=== PATIENT | male | born 1940 | race Caucasian/White ===

== ENCOUNTER → 2016-06-03 | Outpatient (REF) | payer MEDICARE ==
[~2016-06-03] MED LIST: ASPI1TAB PO; ASPI81TAEC PO; ATEN50TA2 PO; DOCQ100C PO; DOCU100C PO; DRIS50002 PO; FLON1SPR; FLUT1SPR2; HYDR50TAB PO; IMDUR PO; ISOS60TA2 PO; NAPR500T2 PO; OMEP20CA3 PO; SPIR50TA2 PO; TUMS500C PO
[2016-06-03 15:53] LABS: CALCIUM LEVEL 8.8 MG/DL (8.8-10.2); CREATININE FOR GFR 2.03 MG/DL (0.70-1.30); GLOMERULAR FILTRATION RATE 34.3 (>42); POTASSIUM SERUM 4.3 MEQ/L (3.5-5.1)
== END ==
LOC: M SFHCLACO 10:13
PROVIDERS: ATTEND Physician Assistant
DX: I10 Essential (primary) hypertension (principal); N28.9 Disorder of kidney and ureter, unspecified

== ENCOUNTER → 2016-09-09 | Outpatient (REF) | payer MEDICARE ==
[2016-09-09 16:38] LABS: ALBUMIN 3.9 GM/DL (3.2-5.2); ALBUMIN/GLOBULIN RATIO 1.3 (1.00-1.93); BILIRUBIN,TOTAL 0.6 MG/DL (0.2-1.0); CALCIUM LEVEL 9.2 MG/DL (8.8-10.2); CREATININE FOR GFR 1.99 MG/DL (0.70-1.30); GLOMERULAR FILTRATION RATE 35.1 (>42); POTASSIUM SERUM 4.5 MEQ/L (3.5-5.1); TOTAL PROTEIN 6.9 GM/DL (6.4-8.2)
== END ==
LOC: M SFHCLACO 08:45
PROVIDERS: ATTEND Physician Assistant
DX: I10 Essential (primary) hypertension (principal); E78.2 Mixed hyperlipidemia; E11.9 Type 2 diabetes mellitus without complications; Z79.82 Long term (current) use of aspirin; Z79.899 Other long term (current) drug therapy

== ENCOUNTER → 2017-01-27 | Outpatient (REF) | payer MEDICARE ==
[~2017-01-27] MED LIST changes: -DOCU100C PO; +DOCU100C16 PO; -NAPR500T2 PO; +NAPR500T3 PO
[2017-01-27 15:55] LABS: ALBUMIN/GLOBULIN RATIO 1.38 (1.00-1.93); BILIRUBIN,TOTAL 0.7 MG/DL (0.2-1.0); CALCIUM LEVEL 9.1 MG/DL (8.8-10.2); CREATININE FOR GFR 1.87 MG/DL (0.70-1.30); GLOMERULAR FILTRATION RATE 37.6 (>42); POTASSIUM SERUM 4.8 MEQ/L (3.5-5.1); TOTAL PROTEIN 6.9 GM/DL (6.4-8.2)
== END ==
LOC: M SFHCLACO 09:08
PROVIDERS: ATTEND Physician Assistant
DX: E78.2 Mixed hyperlipidemia (principal); E11.9 Type 2 diabetes mellitus without complications; I10 Essential (primary) hypertension; Z12.5 Encounter for screening for malignant neoplasm of prostate; E55.9 Vitamin D deficiency, unspecified
CPT/HCPCS: 36415; 80053; 80061; 82306; 83036; G0103

== ENCOUNTER → 2017-07-30 | Outpatient (REF) | payer MEDICARE ==
[2017-07-30 15:28] LABS: TOTAL 25(OH) VITAMIN D 74.4 NG/ML (30.0-100.0)
[2017-07-30 15:29] LABS: ALBUMIN 2.9 GM/DL (3.2-5.2); ALBUMIN/GLOBULIN RATIO 0.71 (1.00-1.93); ALKALINE PHOSPHATASE 179 U/L (45-117); ALT/SGPT 206 U/L (12-78); ANION GAP 10 MEQ/L (8-16); AST/SGOT 119 U/L (7-37); BILIRUBIN,TOTAL 0.6 MG/DL (0.2-1.0); BLOOD UREA NITROGEN 43 MG/DL (7-18); CALCIUM LEVEL 8.9 MG/DL (8.8-10.2); CARBON DIOXIDE LEVEL 30 MEQ/L (21-32); CHLORIDE LEVEL 95 MEQ/L (98-107); CHOLESTEROL LEVEL 82 MG/DL (<200); CREATININE FOR GFR 1.89 MG/DL (0.70-1.30); GLOMERULAR FILTRATION RATE 37.1 (>42); GLUCOSE, FASTING 186 MG/DL (70-100); HDL CHOLESTEROL 10 MG/DL (>40); LDL CHOLESTEROL 41.4 MG/DL (<100); NON-HDL-C 72 MG/DL; POTASSIUM SERUM 4.4 MEQ/L (3.5-5.1); SODIUM LEVEL 135 MEQ/L (136-145); TRIGLYCERIDES LEVEL 153 MG/DL (<150)
[2017-07-30 15:47] LABS: ESTIMATED AVERAGE GLUCOSE 137 MG/DL (60-110); HEMOGLOBIN A1c 6.4 %
== END ==
LOC: M SFHCLACO 08:08
DX: E78.2 Mixed hyperlipidemia (principal); E11.9 Type 2 diabetes mellitus without complications; I10 Essential (primary) hypertension; E55.9 Vitamin D deficiency, unspecified
CPT/HCPCS: 80053

== ENCOUNTER → 2017-08-04 | Outpatient (REF) | payer MEDICARE ==
[2017-08-04 15:13] LABS: ANION GAP 7 MEQ/L (8-16); BLOOD UREA NITROGEN 37 MG/DL (7-18); CALCIUM LEVEL 8.6 MG/DL (8.8-10.2); CARBON DIOXIDE LEVEL 29 MEQ/L (21-32); CHLORIDE LEVEL 101 MEQ/L (98-107); CREATININE FOR GFR 1.68 MG/DL (0.70-1.30); GLOMERULAR FILTRATION RATE 42.5 (>42); GLUCOSE, FASTING 177 MG/DL (70-100); POTASSIUM SERUM 4.9 MEQ/L (3.5-5.1); SODIUM LEVEL 137 MEQ/L (136-145)
[2017-08-04 15:14] LABS: ALBUMIN 3.2 GM/DL (3.2-5.2); ALBUMIN/GLOBULIN RATIO 0.94 (1.00-1.93); ALKALINE PHOSPHATASE 139 U/L (45-117); ALT/SGPT 73 U/L (12-78); AST/SGOT 21 U/L (7-37); BILIRUBIN,TOTAL 0.3 MG/DL (0.2-1.0); TOTAL PROTEIN 6.6 GM/DL (6.4-8.2)
== END ==
LOC: M SFHCLACO 14:38
DX: N18.3 Chronic kidney disease, stage 3 (moderate) (principal); R94.5 Abnormal results of liver function studies
CPT/HCPCS: 80053

== ENCOUNTER → 2017-09-29 | Outpatient (REF) | payer MEDICARE ==
[2017-09-29 21:03] LABS: FERRITIN 237 NG/ML (26-388); IRON (FE) 60 UG/DL (65-175); PERCENT SATURATION 20.5 % (19.7-50.0); TOTAL IRON BINDING CAPACITY 293 UG/DL (250-450)
== END ==
LOC: M LAB REF 18:46
DX: N18.3 Chronic kidney disease, stage 3 (moderate) (principal); D63.1 Anemia in chronic kidney disease
CPT/HCPCS: 83550

== ENCOUNTER → 2018-01-26 | Outpatient (REF) | payer MEDICARE ==
[2018-01-26 15:38] LABS: ALBUMIN 3.8 GM/DL (3.2-5.2); ALBUMIN/GLOBULIN RATIO 1.27 (1.00-1.93); ALKALINE PHOSPHATASE 76 U/L (45-117); ALT/SGPT 24 U/L (12-78); ANION GAP 7 MEQ/L (8-16); AST/SGOT 16 U/L (7-37); BILIRUBIN,TOTAL 0.6 MG/DL (0.2-1.0); BLOOD UREA NITROGEN 29 MG/DL (7-18); CALCIUM LEVEL 8.8 MG/DL (8.8-10.2); CARBON DIOXIDE LEVEL 30 MEQ/L (21-32); CHLORIDE LEVEL 105 MEQ/L (98-107); CHOLESTEROL LEVEL 79 MG/DL (<200); CHOLESTEROL RISK RATIO 2.078 (<5); GLOMERULAR FILTRATION RATE 41.8 (>42); GLUCOSE, FASTING 148 MG/DL (70-100); HDL CHOLESTEROL 38 MG/DL (>40); LDL CHOLESTEROL 26.2 MG/DL (<100); NON-HDL-C 41 MG/DL; POTASSIUM SERUM 4.4 MEQ/L (3.5-5.1); SODIUM LEVEL 142 MEQ/L (136-145); TOTAL PROTEIN 6.8 GM/DL (6.4-8.2); TRIGLYCERIDES LEVEL 74 MG/DL (<150)
[2018-01-26 15:47] LABS: ESTIMATED AVERAGE GLUCOSE 123 MG/DL (60-110); HEMOGLOBIN A1c 5.9 %
[2018-01-26 16:30] LABS: TOTAL 25(OH) VITAMIN D 78.4 NG/ML (30.0-100.0)
== END ==
LOC: M SFHCLACO 08:38
DX: N18.3 Chronic kidney disease, stage 3 (moderate) (principal); R94.5 Abnormal results of liver function studies; E11.22 Type 2 diabetes mellitus with diabetic chronic kidney disease; E78.2 Mixed hyperlipidemia; E55.9 Vitamin D deficiency, unspecified; I12.9 Hypertensive chronic kidney disease with stage 1 through stage 4 chronic kidney disease, or unspecified chronic kidney disease; Z68.41 Body mass index [BMI] 40.0-44.9, adult; I25.10 Atherosclerotic heart disease of native coronary artery without angina pectoris
CPT/HCPCS: 80053

== ENCOUNTER → 2018-03-11 | Outpatient (CLI) | payer MEDICARE | LOC: M SLEEP HO 13:28 | DX: G47.33 Obstructive sleep apnea (adult) (pediatric) (principal) | CPT/HCPCS: G0399 ==

== ENCOUNTER → 2018-04-15 | Outpatient (CLI) | payer MEDICARE | LOC: M SLEEP 19:48 | DX: G47.33 Obstructive sleep apnea (adult) (pediatric) (principal) | CPT/HCPCS: 95811 ==

== ENCOUNTER → 2018-08-05 | Outpatient (REF) | payer MEDICARE ==
[~2018-08-05] MED LIST changes: -DOCQ100C PO; +DOCQ100C5 PO; -DRIS50002 PO; +DRIS50003 PO; +NAPR-885 PO; -NAPR500T3 PO; -SPIR50TA2 PO; +SPIR50TA4 PO
[2018-08-05 12:52] LABS: HEMOGLOBIN A1c 6.4 %
[2018-08-05 13:19] LABS: CALCIUM LEVEL 9.4 MG/DL (8.8-10.2); CREATININE FOR GFR 1.84 MG/DL (0.70-1.30); GLOMERULAR FILTRATION RATE 38.2 (>42); POTASSIUM SERUM 4.8 MEQ/L (3.5-5.1)
[2018-08-05 13:20] LABS: ALBUMIN 4.2 GM/DL (3.2-5.2); BILIRUBIN,TOTAL 0.9 MG/DL (0.2-1.0); CHOLESTEROL RISK RATIO 3.166 (<5); TOTAL PROTEIN 7.2 GM/DL (6.4-8.2)
[2018-08-05 13:24] LABS: TOTAL 25(OH) VITAMIN D 73.4 NG/ML (30.0-100.0)
== END ==
LOC: M SFHCADAM 08:08
PROVIDERS: ATTEND Physician Assistant
DX: N18.3 Chronic kidney disease, stage 3 (moderate) (principal); R94.5 Abnormal results of liver function studies; E11.9 Type 2 diabetes mellitus without complications; E78.2 Mixed hyperlipidemia; Z12.5 Encounter for screening for malignant neoplasm of prostate; E55.9 Vitamin D deficiency, unspecified
CPT/HCPCS: 80053; 80061; 82306; 83036; G0103

== ENCOUNTER → 2019-03-01 | Outpatient (REF) | payer MEDICARE ==
[~2019-03-01] MED LIST changes: -ASPI1TAB PO; +ASPI81TA26 PO; -OMEP20CA3 PO; +OMEP20CA4 PO
[2019-03-01 19:29] LABS: PERCENT SATURATION 22.8 % (19.7-50.0)
== END ==
LOC: M LAB REF 17:07
PROVIDERS: ATTEND Internal Medicine Nephrology
DX: N18.3 Chronic kidney disease, stage 3 (moderate) (principal); D63.1 Anemia in chronic kidney disease

== ENCOUNTER → 2019-03-08 | Outpatient (REF) | payer MEDICARE ==
[~2019-03-08] MED LIST changes: +OMEP1CAP73 PO; -OMEP20CA4 PO
[2019-03-08 13:03] LABS: ALBUMIN 3.9 GM/DL (3.2-5.2); BILIRUBIN,TOTAL 0.8 MG/DL (0.2-1.0); CALCIUM LEVEL 9.1 MG/DL (8.8-10.2); CHOLESTEROL RISK RATIO 2.8 (<5); CREATININE FOR GFR 1.85 MG/DL (0.70-1.30); GLOMERULAR FILTRATION RATE 37.8 (>42); POTASSIUM SERUM 4.4 MEQ/L (3.5-5.1)
[2019-03-08 13:28] LABS: TOTAL 25(OH) VITAMIN D 78.9 NG/ML (30.0-100.0)
[2019-03-08 14:20] LABS: HEMOGLOBIN A1c 6.5 %
== END ==
LOC: M SFHCADAM 08:15
PROVIDERS: ATTEND Physician Assistant
DX: N18.3 Chronic kidney disease, stage 3 (moderate) (principal); R94.5 Abnormal results of liver function studies; E11.9 Type 2 diabetes mellitus without complications; E78.2 Mixed hyperlipidemia; E55.9 Vitamin D deficiency, unspecified

== ENCOUNTER → 2019-06-21 | Outpatient (CLI) | payer MEDICARE ==
--- NOTE | 2019-06-21 15:56 | REP ---
Right upper quadrant sonography: History: Jaundice. Right upper quadrant pain. No comparison study. Findings: The patient reports having eaten 1 hour prior to scanning. There unable to confidently identify the gallbladder. There is an ill-defined cystic area near the falciform ligament which may be gallbladder. However, there is moderate intrahepatic biliary ductal dilation and the common bile duct is dilated to a maximum AP dimension of 11 mm. The pancreas is largely obscured by abdominal gas and I cannot exclude a pancreatic mass. No stone is seen in the visualized common bile duct. The liver displays somewhat coarse echotexture. No focal liver mass lesion is appreciated. The right kidney measures 13.2 x 6.0 x 5 point 4 cm. There are several right renal cysts. In the lower pole there is a 1.9 cm cyst. At mid renal level on the right there is a cyst measuring 3.5 cm in greatest diameter. Laterally there is a 1.6 cm cyst. No hydronephrosis is seen. No evidence of ascites. Impression: Findings consistent with extrahepatic biliary obstruction with dilated intrahepatic and extrahepatic bile ducts. Pancreas could not be evaluated due to bowel gas. The gallbladder was not seen. Recommend CT study of the abdomen and pelvis without and with IV contrast if feasible. Electronically Signed by Jah Ellis MD 06/21/2019 04:40 P
== END ==
LOC: M RAD 14:27
PROVIDERS: ATTEND Physician Assistant
DX: R10.11 Right upper quadrant pain (principal); R17 Unspecified jaundice

== ENCOUNTER → 2019-06-22 | Outpatient (CLI) | payer MEDICARE ==
[~2019-06-22] MED LIST changes: +GASTROGRAFIN SOLUTION 30ML (Q9963) As Ordered ONE; +ISOVUE-370 76% 100ML VIAL (Q9967) As Ordered ONE
[2019-06-22 11:16] LABS: ALBUMIN 3.2 GM/DL (3.2-5.2); BILIRUBIN,TOTAL 18.8 MG/DL (0.2-1.0); CALCIUM LEVEL 9.1 MG/DL (8.8-10.2); CREATININE FOR GFR 2.65 MG/DL (0.70-1.30); POTASSIUM SERUM 4.2 MEQ/L (3.5-5.1); TOTAL PROTEIN 6.9 GM/DL (6.4-8.2)
== END ==
LOC: M RAD 09:41
PROVIDERS: ATTEND Physician Assistant
DX: R85.1 Abnormal level of hormones in specimens from digestive organs and abdominal cavity (principal); R10.11 Right upper quadrant pain
CPT/HCPCS: 36415; 74176; 80053; Q9963

== ENCOUNTER → 2019-07-01 | Outpatient (CLI) | payer MEDICARE ==
[~2019-07-01] MED LIST changes: +ATOR40TA75 PO; +CALC1CAP31 PO; +FAMO1TAB11 PO; +FERR325T81 PO; +FLUTISP NARES; +FURO40TA2 PO; -GASTROGRAFIN SOLUTION 30ML (Q9963) As Ordered ONE; +GLIP5TAB20 PO; -ISOVUE-370 76% 100ML VIAL (Q9967) As Ordered ONE
--- NOTE | 2019-07-01 09:45 | REP ---
MRCP: MRCP exam is accomplished utilizing multiple heavily T2-weighted sequences in the axial and coronal planes. MIP reconstruction images are performed. Moderate diffuse intrahepatic biliary dilatation is present. Gallbladder is diffusely significantly thickened and contains some air. It is inseparable from the proximal duodenum. This likely represents inflammatory process and cholecystitis or could represent gallbladder neoplasm. The process invades and obstructs the common bile duct at that level. The distal common bile duct is normal in caliber, maximum diameter is 5 mm. No definite abnormality is seen of the distal common bile duct. Pancreatic duct is normal in caliber. A cyst is seen in the body of the pancreas measuring 7 mm in diameter, of doubtful significance. Visualized spleen and adrenals are unremarkable. There are bilateral renal cysts present. I seen no definite adenopathy or free fluid in the visualized abdomen. IMPRESSION: Diffuse gallbladder wall thickening either due to inflammatory process and cholecystitis or neoplasm. There is air in the gallbladder lumen. The process appears to be invading the adjacent proximal duodenum, which is inseparable from the gallbladder. There is obliteration and obstruction of the common bile duct at that level. This results in moderate intrahepatic biliary dilatation diffusely. The distal common bile duct appears unremarkable. There is no pancreatic duct dilatation. 7 mm cystic structure in the body of the pancreas is of doubtful significance. For this, followup MRI of the pancreas is recommended in 6-12 months. Electronically Signed by Nura Gibbs MD 07/01/2019 12:53 P
== END ==
LOC: M RAD 07:09
PROVIDERS: ATTEND Physician Assistant
DX: K83.1 Obstruction of bile duct (principal)

== ENCOUNTER 2019-07-02 14:58 | Emergency (ER) | payer MEDICARE ==
[~2019-07-02] VITALS: Ht 172.7 cm; Wt 100.0 kg
[~2019-07-02 14:58] MED LIST changes: -ATOR40TA75 PO; -CALC1CAP31 PO; -FAMO1TAB11 PO; -FERR325T81 PO; -FLUTISP NARES; -FURO40TA2 PO; -GLIP5TAB20 PO
[2019-07-02] MEDS ORDERED: CALC1CAP31 PO (15:21)
[2019-07-02] MEDS ORDERED: GLIP5TAB20 PO (15:21)
[2019-07-02] MEDS ORDERED: FURO40TA2 PO (15:21)
[2019-07-02] MEDS ORDERED: FAMO1TAB11 PO (15:21)
[2019-07-02] MEDS ORDERED: FERR325T81 PO (15:21)
[2019-07-02] MEDS ORDERED: ATOR40TA75 PO (15:21)
[2019-07-02 16:30] LABS: BASO % 0.2 % (0.0-1.0); EOS % 0.1 % (0.0-3.0); HEMATOCRIT 25.7 % (42.0-52.0); HEMOGLOBIN 8.6 g/dl (13.5-17.5); LYMPH # 0.5 10^3/uL (1.5-5.0); LYMPH % 4.4 % (24.0-44.0); MEAN CORPUSCULAR HEMOGLOBIN 31.9 pg (27.0-33.0); MEAN CORPUSCULAR HGB CONC 33.5 g/dl (32.0-36.5); MEAN CORPUSCULAR VOLUME 95.2 fl (80.0-96.0); MONO # 1.3 10^3/uL (0.0-0.8); MONO % 11.9 % (0.0-5.0); NEUTROPHILS # 9.2 10^3/uL (1.5-8.5); NEUTROPHILS % 82.9 % (36.0-66.0); PLATELET COUNT, AUTOMATED 231 10^3/uL (150-450)
[2019-07-02] MEDS ORDERED: NS 1,000 ML IV ONE ×2 (16:30→18:00)
[2019-07-02] MEDS ORDERED: FLUTISP NARES (16:49)
[2019-07-02 17:23] LABS: ALBUMIN 2.3 GM/DL (3.2-5.2); ALT/SGPT 899 U/L (12-78); CK-MB VALUE MASS < 1.0 NG/ML (<3.6); CPK CREATINE PHOSPHOKINASE 131 U/L (39-308); LIPASE 351 U/L (73-393); MB/CK RELATIVE INDEX 0.76 (< OR =4); TOTAL PROTEIN 5.6 GM/DL (6.4-8.2); TROPONIN I < 0.02 NG/ML (< 0.10)
[2019-07-02 17:59] LABS: BILIRUBIN,DIRECT 23.9 MG/DL (0.0-0.2); BILIRUBIN,TOTAL 26.6 MG/DL (0.2-1.0)
[2019-07-02] MEDS ORDERED: PANTOPRAZOLE 40MG INJ (PROTONIX) (C9113) IV ONE (19:30)
[2019-07-02 21:00] VITALS: BP 115/58
[2019-07-04 12:12] LABS: HEPATITIS A ANTIBODY IGM NEGATIVE (NEGATIVE); HEPATITIS B CORE ANTIBODY IGM NEGATIVE (NEGATIVE); HEPATITIS B SURFACE ANTIGEN NEGATIVE (NEGATIVE); HEPATITIS C VIRUS ABY INDEX < 0.0 INDEX (<0.8)
== END 2019-07-02 21:10 | disposition short-term general hospital (02) ==
LOC: M ED 14:58 → EDBD 14:58 → M ED 21:10
DX: R17 Unspecified jaundice (principal); E80.6 Other disorders of bilirubin metabolism; K75.9 Inflammatory liver disease, unspecified; I10 Essential (primary) hypertension; E11.9 Type 2 diabetes mellitus without complications; E78.5 Hyperlipidemia, unspecified; M19.90 Unspecified osteoarthritis, unspecified site; Z95.1 Presence of aortocoronary bypass graft; Z79.899 Other long term (current) drug therapy; Z79.84 Long term (current) use of oral hypoglycemic drugs; Z79.82 Long term (current) use of aspirin; Z88.8 Allergy status to other drugs, medicaments and biological substances
CPT/HCPCS: 80047; 80076; 81001; 82550; 82553; 83605; 83690; 84484; 85025; 86705; 86709; 86803; 86850; 86900; 86901; 87340; 93041; 96361; 96374; 99285; C9113

== ENCOUNTER → 2019-08-12 | Outpatient (CLI) | payer MEDICARE ==
[~2019-08-12] MED LIST changes: +ATOR40TA75 PO; +CALC1CAP31 PO; +FAMO1TAB11 PO; +FERR325T81 PO; +FLUTISP NARES; +FURO40TA2 PO; +GLIP5TAB20 PO
--- NOTE | 2019-08-16 09:13 | RADONC ---
RADIATION ONCOLOGY CONSULTATION NOTE DATE: 08/12/2019 CHART NUMBER: [id number] DIAGNOSIS: Gallbladder cancer, squamous cell. STAGE: III A, cT3, cN0, cM0. ECOG PERFORMANCE STATUS: 0 HISTORY OF PRESENT ILLNESS: Mr. 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 The patient reports that he was in his usual state of health until more recently when he began losing weight and developed some jaundice. He had an MRCP done and was found to have biliary dilation and diffuse thickening of his gallbladder. There was noted to be a suspicious lesion near the head of the pancreas, which was inseparable from his duodenum. On 07/04/2019, the patient underwent ultrasound-guided fine-needle aspiration biopsy and pathology revealed a squamous cell carcinoma. He has had an IR placement percutaneous drain to deal with his jaundice and reports that he is scheduled for surgery on the for internal stent placement. In the meantime, he was seen by his radiation oncologist doctor, Leighann Flores MD as well as his medical oncologist, Dr. Nolasco, and the plan is to initiate palliative concurrent radiation and chemotherapy consisting of cisplatin in an attempt to achieve some local control. PAST MEDICAL HISTORY: The patient's past medical history is positive for diabetes, allergies, arthritis, anemia, chronic kidney disease, coronary artery disease, diverticulitis, GERD, hemorrhoids, hepatitis, hyperlipidemia, hypertension, a myocardial infarction, sleep apnea, and syncope. He has had a CABG. He has had eye surgery in the past as well as a tonsillectomy. ALLERGIES: The patient is allergic to PRILOSEC and TYLENOL. SOCIAL HISTORY: The patient does not abuse tobacco. He drinks alcohol socially. FAMILY HISTORY: The patient's family history is positive for a father with lung cancer. There is no family history of gallbladder cancer. REVIEW OF SYSTEMS: The patient's review of systems is positive for the physical limitations secondary to his age and the drain over his abdomen, but is otherwise noncontributory. Denies nausea, vomiting, fevers, chills, night sweats, diplopia, headaches, anxiety or depression, anorexia, weight loss, visual disturbances, chest pain, urinary or bowel difficulties, bone pain, or neurological problems. PHYSICAL EXAMINATION: The patient is a well-developed, well-nourished white male in no acute distress. HEENT exam is normocephalic, atraumatic. Extraocular movements are intact. There is no palpable cervical, supraclavicular, infraclavicular, axillary or inguinal lymphadenopathy present. His lungs are clear to auscultation and percussion. His heart has a regular rate and rhythm. His abdomen is benign with no hepatosplenomegaly, masses or tenderness. There is a drain present consistent with his above history. Skeletal examination reveals no tenderness to pressure or percussion of the bony skeleton. Neurologic exam is grossly intact to sensory, motor. ASSESSMENT: I had a lengthy discussion with this patient with regards to external beam radiation therapy. We discussed logistics of treatment planning, simulation subsequent fractionated daily radiation treatments. I am in full agreement with his other physicians, Dr. Leighann Flores MD and Dr. Nolasco, and I believe he may benefit from a course of radiation therapy to a dose of approximately 5269-4483 cGy in attempt to increase local control with concomitant cisplatin. Unfortunately, due to involvement of the duodenum, higher doses of radiation will not be safely possible. Indeed, I concur with Dr. Flores. Literature shows a very poor overall survival for this tumor. Once again, the dose we are able to deliver will be insufficient to obtain long-term control and the likelihood of cure is exceedingly small. Thank you for allowing us to participate in the care of this very pleasant gentleman. If I could be of any further assistance, please free to contact me anytime. As always, warm regards. cc: MD Niranjan Hughes MD
== END ==
LOC: M ONCR 10:12
PROVIDERS: ATTEND Radiology Radiation Oncology
DX: C23 Malignant neoplasm of gallbladder (principal)

== ENCOUNTER → 2019-08-15 | Outpatient (REF) | payer MEDICARE | LOC: M SFHCADAM 15:02 | PROVIDERS: ATTEND Physician Assistant | DX: K83.1 Obstruction of bile duct (principal) ==

== ENCOUNTER → 2019-08-17 | Outpatient (REF) | payer MEDICARE ==
[2019-08-17 19:29] LABS: ALBUMIN 3.1 GM/DL (3.2-5.2); ALT/SGPT 44 U/L (12-78); BILIRUBIN,TOTAL 1.2 MG/DL (0.2-1.0); BLOOD UREA NITROGEN 22 MG/DL (7-18); CALCIUM LEVEL 8.7 MG/DL (8.8-10.2); CARBON DIOXIDE LEVEL 27 MEQ/L (21-32); CHLORIDE LEVEL 110 MEQ/L (98-107); GLOMERULAR FILTRATION RATE > 60.0 (>42); GLUCOSE, FASTING 140 MG/DL (70-100); POTASSIUM SERUM 3.8 MEQ/L (3.5-5.1); SODIUM LEVEL 140 MEQ/L (136-145); TOTAL PROTEIN 6.4 GM/DL (6.4-8.2)
[2019-08-17 19:30] LABS: BASO % 0.1 % (0.0-1.0); EOS # 0.4 10^3/uL (0.0-0.5); EOS % 3.5 % (0.0-3.0); HEMOGLOBIN 9.6 g/dl (13.5-17.5); LYMPH # 1.2 10^3/uL (1.5-5.0); LYMPH % 11.1 % (24.0-44.0); MEAN CORPUSCULAR HEMOGLOBIN 34.4 pg (27.0-33.0); MEAN CORPUSCULAR VOLUME 107.5 fl (80.0-96.0); MONO # 1.1 10^3/uL (0.0-0.8); MONO % 10.1 % (0.0-5.0); NEUTROPHILS # 7.8 10^3/uL (1.5-8.5); NEUTROPHILS % 74.6 % (36.0-66.0); PLATELET COUNT, AUTOMATED 166 10^3/uL (150-450); RED BLOOD COUNT 2.79 10^6/uL (4.30-6.10); WHITE BLOOD COUNT 10.5 10^3/uL (4.0-10.0)
== END ==
LOC: M LAB REF 18:55 → M LABDRWAD 18:55
PROVIDERS: ATTEND Nurse Practitioner Family
DX: C44.92 Squamous cell carcinoma of skin, unspecified (principal)

== ENCOUNTER 2019-08-29 10:35 | Outpatient (RCR) | payer MEDICARE ==
[~2019-08-29 10:35] MED LIST changes: +VITA50005 PO
--- NOTE | 2019-08-29 13:09 | RADONC ---
RADIATION ONCOLOGY SIMULATION NOTE DATE: 08/29/2019 CHART NUMBER: [id number] SIMULATION NOTE: Mr. Michael was taken to the CT scan for CT simulation of his gallbladder field. CT was accomplished without difficulty or discomfort. Radiation treatment planning is underway and radiation treatments will begin subsequently. An immobilization device was created and will be used throughout the course of treatment. It was created without difficulty or discomfort. I was physically present throughout the course of CT simulation.
== END 2019-08-30 ==
LOC: M ONCR 10:35
PROVIDERS: ATTEND Radiology Radiation Oncology
DX: C23 Malignant neoplasm of gallbladder (principal)

== ENCOUNTER → 2019-09-01 | Outpatient (CLI) | payer MEDICARE ==
[~2019-09-01] MED LIST changes: +LIDOCAINE 1% MDV 20ML VIAL As Ordered ONE; +MIDAZOLAM INJ 2 MG/2 ML VIAL (J2250) As Ordered ONE; +ceFAZolin 1GM VIAL (J0690 PER 500MG) As Ordered ONE; +diphenhydrAMINE INJ 50MG/ML VIAL (J1200) As Ordered ONE; +fentaNYL 100 MCG/2 ML INJECTION (J3010) As Ordered ONE
[2019-09-01 15:03] VITALS: BP 123/58
--- NOTE | 2019-09-02 11:18 | REP ---
IR Ultrasound and fluoroscopy-guided port placement. IR Ultrasound of the neck. IR Moderate sedation. Clinical information: Gallbladder cancer. Physician: Dr. Hendrickson. Procedure: The patient was advised of the benefits, risks, and alternatives of the procedure and informed consent was obtained. A time-out was performed with verification of the patient's name, MRN, site of procedure and type of procedure to be performed. The patient was positioned in the supine position on the angiographic table. The site was prepped and draped in the usual sterile fashion. Moderate sedation was performed by the physician including the presence of an independent trained observer who assisted and monitored the patient's level of consciousness and physiologic status. Following the administration of ??, the physician spent 45 minutes of continuous face to face time with the patient. Ultrasound of the neck reveals a patent and compressible right internal jugular vein. A detective bureau chief radiograph reveals median sternotomy wires. The neck and anterior chest wall were anesthetized with lidocaine. The right internal jugular vein was accessed using a microintroducer needle under ultrasound guidance, via a lateral approach. An 018 wire was advanced into the superior vena cava, the needle was removed and a microsheath was placed. An Amplatz wire was then passed into the inferior vena cava. An incision at the internal jugular vein access site and anterior chest wall were made using a scalpel. An incision was made at the anterior chest wall. A small pocket was created using a combination of blunt and sharp dissection. A tunneling device was then used to pass the catheter from the pocket to the neck puncture site. An 8-Lao Angio dynamics Smart power port was then positioned in the pocket. The catheter was then measured and cut. The introducer sheath was exchanged for a peel-away sheath. The catheter was passed through the peel-away sheath into the internal jugular vein and the peel-away sheath was removed. The port tip was positioned at the cavoatrial junction. The port was then accessed with a Cabrera needle. The port flushes and aspirates well. The puncture site in the neck was closed. The chest wall incision was then closed with 2-0 Vicryl and 4-0 Monocryl. Glue and Steri-Strips were applied. A sterile dressing was then applied. The patient tolerated the procedure well and was returned to the PRU in stable condition. Estimated blood loss: <5 ml. Complications: None. Conclusion: 1. Successful placement of an 8-Lao Angio dynamics Smart power port via the right internal jugular vein. The port is ready for immediate use. 2. Patient to follow up in IR clinic in 2 weeks. Thank you for this referral. Electronically Signed by Catherine Hendrickson MD 09/02/2019 11:17 A
== END ==
LOC: M IRPRO 11:41
PROVIDERS: ATTEND Internal Medicine Hematology & Oncology
DX: C23 Malignant neoplasm of gallbladder (principal)
CPT/HCPCS: 36561; 99152; 99153; C1769; C1788; C1894; J0690; J1200; J1642; J1644; J2250; J3010

== ENCOUNTER 2019-09-20 11:00 | Outpatient (RCR) | payer MEDICARE ==
--- NOTE | 2019-09-12 11:44 | RADONC ---
RADIATION ONCOLOGY PROGRESS NOTE DATE OF SERVICE: 09/12/2019 CHART NUMBER: [id number] Mr. Michael is presently a dose of 540 cGy to his gallbladder and is tolerating his treatments with some nausea. He reports that his medical oncologist was supposed to send in a prescription with his other specific prescriptions for an antiemetic, but he does not know if it was sent. Other than that, the patient's review of systems is noncontributory. Denies nausea, vomiting, fevers, chills, night sweats, diplopia, headaches, anxiety or depression, anorexia, weight loss, visual disturbances, chest pain, urinary or bowel difficulties, bone pain, or neurological problems. PHYSICAL EXAMINATION The patient's skin reveals no evidence of radiation change present. There is no moist or dry desquamation. The remainder of his physical exam is unchanged. Mr. Michael is tolerating his treatments with only some nausea. I have sent him to our commercial front load driver to check on the prescription for his antiemetic. In the meantime, radiation will continue as scheduled.
--- NOTE | 2019-09-19 14:56 | RADONC ---
RADIATION ONCOLOGY PROGRESS NOTE DATE OF SERVICE: 09/19/2019 CHART NUMBER: [id number]. PROGRESS NOTE: Mr. Michael is presently at a dose of 1440 cGy to his gallbladder and is tolerating treatments quite well at this point with no significant difficulties related to his radiation therapy other than some fatigue. He has continued constipation. REVIEW OF SYSTEMS: The patient's review of systems is positive for fatigue and some constipation but is otherwise noncontributory. He denies nausea, vomiting, fevers, chills, night sweats, diplopia, headaches, anxiety or depression, anorexia, weight loss, visual disturbances, chest pain, urinary or bowel difficulties, bone pain, or neurological problems. PHYSICAL EXAMINATION: The patient's skin is in good condition with no evidence of radiation change present. There is no moist or dry desquamation. The remainder of his physical exam remains unchanged. Radiation will continue as scheduled.
--- NOTE | 2019-09-27 00:15 | RADONC ---
RADIATION ONCOLOGY PROGRESS NOTE DATE: 09/26/2019 CHART NUMBER: [id number] Mr. Michael is thus far at a dose of 1620 cGy to his gallbladder and was last treated on 09/16/2019. At that time, we received a call from [employer] saying he was exposed to COVID-19 virus by a healthcare worker. He has been placed on mandatory quarantine. Received a phone call from the patient's daughter today reporting that so far he is doing well and now 1 week out he is still asymptomatic. We let her know that we are planning on resuming radiation on Thursday following completion of his 14-day quarantine. The treatments in this case are palliative in nature; therefore, it is not unreasonable to be cautious.
== END 2019-09-29 ==
LOC: M ONCR 11:00
PROVIDERS: ATTEND Radiology Radiation Oncology
DX: C23 Malignant neoplasm of gallbladder (principal)

== ENCOUNTER → 2019-09-20 | Outpatient (POV) | payer MEDICARE ==
[~2019-09-20] MED LIST changes: -LIDOCAINE 1% MDV 20ML VIAL As Ordered ONE; -MIDAZOLAM INJ 2 MG/2 ML VIAL (J2250) As Ordered ONE; +OLAN10TA2 PO; +ONDA8TAB10 PO; +PROC10TA4 PO; -ceFAZolin 1GM VIAL (J0690 PER 500MG) As Ordered ONE; -diphenhydrAMINE INJ 50MG/ML VIAL (J1200) As Ordered ONE; -fentaNYL 100 MCG/2 ML INJECTION (J3010) As Ordered ONE
--- NOTE | 2019-09-21 09:39 | IRPN ---
[facility] [place] IR Progress Note IR Progress Note DATE: Sep 20, 2019 Tele follow up FOLLOW-UP: status post port placement, patient doing well. No pain, fever or discomfort. Port being used without issues. ON EXAMINATION: No video conference available on patient side, IMPRESSION: Doing well status post port placement. No further follow up needed unless scheduled by patient and or referring provider. Thank you for this referral Allergies Coded Allergies: acetaminophen (Verified Allergy, Unknown, gi distress, 07/02/19) saccharin (Verified Allergy, Unknown, gi distress, 07/02/19) KACI EARL MD Sep 21, 2019 09:39
== END ==
LOC: M IRPOV 09:29
PROVIDERS: ATTEND Radiology Diagnostic Radiology
DX: Z45.2 Encounter for adjustment and management of vascular access device (principal)

== ENCOUNTER 2019-10-14 11:37 | Outpatient (CLI) | payer MEDICARE ==
[2019-10-14] VITALS (7 sets, daily range): BP systolic 120–138; BP diastolic 58–70
[~2019-10-14] VITALS: Ht 172.7 cm; Wt 95.7 kg
[~2019-10-14 11:37] MED LIST changes: +diphenhydrAMINE 25MG CAP PO SCH
[2019-10-14] MEDS ORDERED: SODIUM CHLORIDE 0.9% INJ 10 ML SYR IV PRN (12:00)
[2019-10-15] MEDS ORDERED: SODIUM CHLORIDE 0.9% INJ 10 ML SYR IV SCH (09:00)
== END 2019-10-14 14:50 | disposition home or self-care (01) ==
LOC: M INFU 11:37
PROVIDERS: ATTEND Internal Medicine Hematology & Oncology
DX: D64.9 Anemia, unspecified (principal)
CPT/HCPCS: 36430; J1642; P9016

== ENCOUNTER 2019-10-25 10:56 | Outpatient (RCR) | payer MEDICARE ==
--- NOTE | 2019-10-06 08:45 | RADONC ---
RADIATION ONCOLOGY PROGRESS NOTE DATE: 10/03/2019 CHART NUMBER: [id number] PROGRESS NOTE: Mr. Michael is presently at a dose of 1800 cGy to his gallbladder and is tolerating his treatments quite well at this point with no complaints related to his radiation therapy. The patient continues have physical limitations and is presenting in a wheelchair. He reports fatigue and tiredness. He had been on quarantined for 2 weeks since his textile colorist dyer developed COVID-19. The patient has no symptoms of COVID-19 now after a 14 day quarantine and is now restarting radiation. PHYSICAL EXAMINATION: The patient's skin is in excellent condition with no evidence of moist or dry desquamation. The remainder of his physical remains unchanged. Mr. Michael has resumed radiation and treatments will continue as scheduled.
--- NOTE | 2019-10-11 12:56 | RADONC ---
RADIATION ONCOLOGY PROGRESS NOTE DATE: 10/10/2019 CHART #: [id number] Mr. Michael is presently at a dose of 2700 cGy to his gallbladder and is tolerating treatments quite well at this point with no complaints related to his radiation therapy. He continues to report that he is having constipation. REVIEW OF SYSTEMS: The patient's review of systems is positive for physical limitations secondary to his age and overall weak condition. He is presenting in a wheelchair. He complains of constipation and hair loss. His review of systems is otherwise negative. He is having no nausea, vomiting, fevers, chills, night sweats, diplopia, headaches, anxiety or depression. PHYSICAL EXAMINATION: The patient's skin is in good condition with no evidence of moist or dry desquamation. The remainder of his physical exam remains unchanged. ASSESSMENT: Mr. Michael is tolerating his treatments quite well and they will continue as scheduled. He continues to be somewhat hostile or confrontational in nature. I reassured him that everything is going as planned. I did explain to him the goal of our radiation is to shrink up this tumor and obtain some type of local control. I made quite clear once again as I have on multiple occasions that radiation alone will not cure this and our goal is palliation/local control. The patient seemed quite surprised at this, although I did bring out the previous notes from the referring radiation oncologist, as well as, his medical oncologist and other physicians all saying the same thing Indeed, they discussed his overall life span with him according to the medical records. In the meantime, radiation is continuing as scheduled. We will of course defer to his medical oncologist if surgery is to be considered at all. BHARGAV
--- NOTE | 2019-10-19 09:31 | RADONC ---
RADIATION ONCOLOGY PROGRESS NOTE DATE: 10/17/2019 CHART NUMBER: [id number] PROGRESS NOTE: Mr. Michael is presently at a dose of 3600 cGy to his gallbladder and is tolerating treatments quite well at this point with no significant difficulties related to his radiation therapy. He continues have some abdominal discomfort. REVIEW OF SYSTEMS: The patient's review of systems is positive for his abdominal discomfort and constipation, but is otherwise noncontributory. Denies nausea, vomiting, fevers, chills, night sweats, diplopia, headaches, anxiety or depression, anorexia, weight loss, visual disturbances, chest pain, urinary or bowel difficulties, bone pain, or neurological problems. PHYSICAL EXAMINATION: The patient's skin is in good condition with no evidence of moist or dry desquamation. The remainder of his physical exam remains unchanged. Mr. Michael is tolerating treatments quite well and radiation will continue as scheduled.
[~2019-10-25 10:56] MED LIST changes: -diphenhydrAMINE 25MG CAP PO SCH
[2019-10-26] MEDS ORDERED: PROC10TA4 PO (08:10)
[2019-10-26] MEDS ORDERED: ONDA8TAB10 PO (08:10)
[2019-10-26] MEDS ORDERED: OLAN10TA2 PO (08:10)
== END 2019-10-30 ==
LOC: M ONCR 10:56
PROVIDERS: ATTEND Radiology Radiation Oncology
DX: C23 Malignant neoplasm of gallbladder (principal)